=== PATIENT | male | born 1945 | race Caucasian/White ===

== ENCOUNTER → 2019-05-19 12:30 | Outpatient (CLI) | payer MEDICARE ==
[~2019-05-19] VITALS: Ht 182.9 cm; Wt 120.7 kg
[2019-05-19 14:02] VITALS: Ht 182.9 cm; Wt 120.7 kg
== END | disposition home or self-care (01) ==
LOC: D.FANS 04-21 13:00
PROVIDERS: ATTEND Family Medicine
DX: R73.9 Hyperglycemia, unspecified (principal)